=== PATIENT | female | born 1950 | race Caucasian/White ===

== ENCOUNTER 2020-01-04 08:26 | Outpatient (CLI) | payer MEDICARE, SELFPAY ==
--- NOTE | ~2020-01-04 | MM_ITS ---
EXAMINATION: MM scrn marcela implant BI w yola HISTORY: Screening mammogram, family history of breast cancer in her mother. TECHNIQUE: Craniocaudal and mediolateral oblique 3-D tomosynthesis images with implant displacement a nd synthetic 2-D images were generated. Craniocaudal and mediolateral oblique views of the breasts wi thout implant displacement were obtained using full field digital mammography. CAD analysis was submi tted and interpreted. COMPARISON: 08/11/2018, 10/08/2016, 09/17/2015 BREAST PARENCHYMAL COMPOSITION: There are scattered areas of fibroglandular density. FINDINGS: RIGHT BREAST: Asymmetries are present in the far posterior third of the upper breast on the mediolate ral oblique view without implant displacement. LEFT BREAST: There is no evidence of suspicious mass, calcification, or architectural distortion to s uggest malignancy. There has been no significant interval change. IMPRESSION: 1. Right breast asymmetries on the mediolateral oblique view without implant displacement. 2. Additional mammographic views and possible breast ultrasound are recommended. BI-RADS Category 0: Incomplete: Needs additional imaging evaluation. Reviewed, dictated and finalized at location A. 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 Right breast asymmetries on the mediolateral oblique view without implant di splacement. 2. Additional mammographic views and possible breast ultrasound are recommended . BI-RADS Category 0: Incomplete: Needs additional imaging evaluation.
== END 2020-01-04 08:27 | disposition home or self-care (01) ==
LOC: ANHIMG 08:37
DX: Z12.31 Encounter for screening mammogram for malignant neoplasm of breast (principal); R92.8 Other abnormal and inconclusive findings on diagnostic imaging of breast
CPT/HCPCS: 77063; 77067

== ENCOUNTER 2020-02-05 12:59 | Outpatient (CLI) | payer MEDICARE, SELFPAY ==
--- NOTE | ~2020-02-05 | MM_ITS ---
EXAMINATION: MM diagnostic mammo unilat RT HISTORY: Right breast asymmetries on screening mammogram TECHNIQUE: Additional images of the right breast were performed. CAD analysis was submitted and inter preted. COMPARISON: 01/04/2020, 08/11/2018,10/08/2016, 09/17/2015 FINDINGS: A single persistent asymmetry is seen in the posterior third of the upper breast on the med iolateral view without implant displacement. This has the appearance of extravasated silicone. No add itional persistent asymmetry is identified. IMPRESSION: 1. No mammographic evidence of malignancy. 2. Recommend routine screening mammography in one year. BI-RADS Category 2: Benign finding(s). Reviewed, dictated and finalized at location A. 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
== END 2020-02-05 13:00 | disposition home or self-care (01) ==
PROVIDERS: PCP Internal Medicine
DX: R92.2 Inconclusive mammogram (principal)
CPT/HCPCS: 77065

== ENCOUNTER 2020-04-23 07:59 | Outpatient (CLI) | payer MEDICARE, SELFPAY | END 2020-04-23 08:00 | LOC: ANHCOVIDVC 07:59 | PROVIDERS: PCP Internal Medicine; Visit Provider Internal Medicine | DX: Z23 Encounter for immunization (principal) | CPT/HCPCS: 0001A; 91300 ==

== ENCOUNTER 2020-05-14 07:57 | Outpatient (CLI) | payer MEDICARE, SELFPAY | END 2020-05-14 07:58 | disposition home or self-care (01) | LOC: ANHCOVIDVC 07:58 | PROVIDERS: PCP Internal Medicine | DX: Z23 Encounter for immunization (principal) | CPT/HCPCS: 0002A; 91300 ==

== ENCOUNTER 2020-08-16 08:26 | Outpatient (CLI) | payer MEDICARE, SELFPAY ==
--- NOTE | ~2020-08-16 | MR_ITS ---
EXAMINATION: MR brain IAC wo/w con DATE: 08/16/2020 09:49 INDICATION: Vertigo. TECHNIQUE: Magnetic resonance imaging (MRI) of the brain, brainstem, and internal auditory canals was performed without and with 12 mL MultiHance intravenous contrast. Sequences included sagittal and ax ial T1-weighted FSE, axial diffusion-weighted FS EPI, axial T2*-weighted GRE, axial T2-weighted FLAIR Propeller, axial T2-weighted Propeller, small wnejy-le-iyra coronal FIESTA, small dnldx-wa-fonj jabari nal T1-weighted FSE, and small qbtai-pp-raio axial T1-weighted SPGR. Postcontrast sequences included axial T1-weighted FSE, small qmspw-je-uoyk coronal T1-weighted FSE, and small fpdfm-vr-qnjl axial T1- weighted SPGR. Apparent diffusion coefficient (ADC) maps were created. COMPARISON: None. FINDINGS: There are scattered areas of nonspecific increased T2-weighted signal intensity in the cere bral white matter, which is within normal limits for the patient's age. There is no intracranial hemo rrhage, acute infarction, or abnormal intracranial mass lesion. The ventricles are normal in size. Th ere is mild mucosal thickening in the ethmoid sinuses. There are likely changes of ocular lens replac ement surgeries. The internal auditory canals and inner ears are normal. There is a small left mastoi d effusion. IMPRESSION: 1. Normal aging brain. Reviewed, dictated and finalized at location A. IMPRESSION: 1. Normal aging brain.
[2020-08-16 09:11] LABS: Estimated Glomerular Filt Rate 55
== END 2020-08-16 08:27 | disposition home or self-care (01) ==
PROVIDERS: PCP Internal Medicine
DX: H81.4 Vertigo of central origin (principal)
CPT/HCPCS: 70553; A9577

== ENCOUNTER → 2020-11-19 04:52 | Outpatient (CLI) | payer MEDICARE, SELFPAY ==
[2020-11-20 01:26] LABS: SARS-CoV-2 RNA PCR Negative
== END ==
PROVIDERS: PCP Internal Medicine; Visit Provider Internal Medicine
DX: R68.89 Other general symptoms and signs (principal); Z20.822 Contact with and (suspected) exposure to COVID-19
CPT/HCPCS: C9803; U0003; U0005

== ENCOUNTER → 2021-02-13 10:00 | Outpatient (CLI) | payer MEDICARE, SELFPAY ==
--- NOTE | ~2021-02-13 | DEXA_ITS ---
Bone Density Report Name: ALYSSA CISNEROS Age: 70 Sex: Female Ethnicity: White Date of : 1950 Indication: osteopenia; monitoring treatment; parental hip fracture; height loss; hysterectomy; postmenopausal Referring Provider: NICK WALTERS Study: Bone densitometry was performed. Exam Date: February 13, 2021 Accession number: [id number] Bone Density: Region BMD T-score Z-score Classification AP Spine (L1-L4) 0.852 -1.8 0.5 Osteopenia Femoral Neck (Left) 0.662 -1.7 0.2 Osteopenia Total Hip (Left) 0.707 -1.9 -0.3 Osteopenia Femoral Neck (Right) 0.649 -1.8 0.1 Osteopenia Total Hip (Right) 0.725 -1.8 -0.2 Osteopenia Total Hip Mean 0.716 -1.9 -0.3 Osteopenia World Health Organization criteria for BMD impression classify patients as: Normal (T-score at or above -1.0), Osteopenia (T-score between -1.0 and -2.5), or Osteoporosis (T-score at or below -2.5). 10-year Fracture Risk: FRAX not reported because: Treated for osteoporosis Previous Exams: Region Exam Age BMD T-score BMD Change BMD Change Date g/cm2 vs Baseline vs Previous AP Spine(L1-L4) 02/13/2021 70 0.852 -1.8 -0.103* -0.024* 08/11/2018 67 0.876 -1.6 -0.080* -0.051* 05/27/2012 61 0.926 -1.1 -0.029* -0.029* 02/01/2007 56 0.955 -0.8 Total Hip(Left) 02/13/2021 70 0.707 -1.9 -0.056* -0.027 08/11/2018 67 0.734 -1.7 -0.029* -0.019 05/27/2012 61 0.753 -1.5 -0.010 -0.010 02/01/2007 56 0.763 -1.5 Total Hip(Right) 02/13/2021 70 0.725 -1.8 -0.036* -0.004 08/11/2018 67 0.728 -1.8 -0.032* -0.008 05/27/2012 61 0.736 -1.7 -0.025 -0.025 02/01/2007 56 0.761 -1.5 *Denotes significance at 95% confidence level, LSC for AP Spine = 0.022 g/cm2, LSC for Total Hip = 0.027 g/cm2 Clinical Information Provided by Patient: Parent has had a hip fracture Is being treated for osteoporosis Has used the following medications: Vitamin D, Calcium, OSPHENA Has the following medical conditions: Hysterectomy Patient maximum height was 67.5 Menopause Age: 28 Drinks caffeinated beverages Onset of menses at age 11 Number of children 2 Impression: The patient has low bone mass, based on the Left Total Hip T-score. The patient has risk factors, including: parental hip fracture. The BMD for the AP Spine(L1-L4) decreased, ene
== END ==
PROVIDERS: PCP Internal Medicine
DX: Z78.0 Asymptomatic menopausal state (principal); M85.88 Other specified disorders of bone density and structure, other site; M85.852 Other specified disorders of bone density and structure, left thigh; M85.851 Other specified disorders of bone density and structure, right thigh
CPT/HCPCS: 77080

== ENCOUNTER 2021-02-19 07:33 | Outpatient (CLI) | payer MEDICARE, SELFPAY ==
--- NOTE | ~2021-02-19 | US_ITS ---
EXAMINATION: US abdomen limited EXAM DATE: 02/19/2021 07:56 INDICATION: R10.9 - Unspecified abdominal pain TECHNIQUE: Multiple grayscale and Doppler images of the abdomen right upper quadrant were obtained (b y a technologist who performed the scan) and subsequently reviewed. There are no prior studies for co mparison. FINDINGS: The pancreatic head and body are normal in appearance. The pancreatic tail is not visualized. The l iver has normal echogenicity and contour. There are no focal liver lesions identified. There is no evidence of intrahepatic biliary duct dilation. Portal venous flow was seen in the hepatopedal, nor mal direction and has normal Doppler waveform. No right-sided hydronephrosis. Incidental right renal cyst measuring 3.7 cm. Common bile duct measures 2 mm, which is normal. The gallbladder wall is normal in thickness, with ex pected amount of distention. No sonographic evidence of pericholecystic fluid. There is no cholelit hiases. Technologist performing exam reports patient did not demonstrate sonographic Paulino's sign. Please note that this sign is less reliable in patients who have received pain medication. IMPRESSION: Unremarkable abdominal ultrasound exam. Reviewed, dictated and finalized at location A. 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
== END 2021-02-19 07:34 | disposition home or self-care (01) ==
LOC: ANHIMG 07:33
PROVIDERS: PCP Internal Medicine; Visit Provider Internal Medicine
DX: R10.9 Unspecified abdominal pain (principal)
CPT/HCPCS: 76705

== ENCOUNTER 2021-04-28 08:32 | Outpatient (CLI) | payer MEDICARE, SELFPAY ==
--- NOTE | ~2021-04-28 | MM_ITS ---
EXAMINATION: MM scrn marcela implant BI w yola HISTORY: Screening mammogram TECHNIQUE: Craniocaudal and mediolateral oblique 3-D tomosynthesis images with implant displacement a nd synthetic 2-D images were generated. Craniocaudal and mediolateral oblique views of the breasts wi thout implant displacement were obtained using full field digital mammography. CAD analysis was submi tted and interpreted. COMPARISON: Comparison to multiple prior studies sequentially, with oldest reviewed study dated 09/06. BREAST PARENCHYMAL COMPOSITION: There are scattered areas of fibroglandular density. FINDINGS: There is no evidence of suspicious mass, calcification, or architectural distortion to sugg est malignancy in either breast. There has been no suspicious interval change. IMPRESSION: 1. No mammographic evidence of malignancy. 2. Recommend routine screening mammography in one year. BI-RADS Category 1: Negative Reviewed, dictated and finalized at location A. MS SORTER
== END 2021-04-28 08:33 | disposition home or self-care (01) ==
LOC: ANHIMG 08:38
PROVIDERS: PCP Internal Medicine; Visit Provider Obstetrics & Gynecology
DX: Z12.31 Encounter for screening mammogram for malignant neoplasm of breast (principal)
CPT/HCPCS: 77063; 77067

== ENCOUNTER 2021-10-21 08:06 | Outpatient (CLI) | payer MEDICARE, SELFPAY ==
--- NOTE | ~2021-10-21 | NM_ITS ---
EXAMINATION: NM hepatobiliary wo pharm DATE: 10/21/2021 11:06 INDICATION: Abdominal pain, nausea and loss of appetite COMPARISON: None. TECHNIQUE: 5.0 mCi Tc-99m mebrofenin (Choletec) was administered intravenously. Scintigraphic images of the abdomen were obtained for one hour. At the 1 hour time point, the patient drank 8 oz Ensure, and imaging was continued for 60 minutes. Gallbladder ejection fraction was calculated by the technol ogist. FINDINGS: There is normal clearance of radiotracer from the blood pool. There is homogeneous tracer u ptake by the liver. Activity progresses to the bowel and gallbladder. The gallbladder ejection fract ion (GBEF) is 71%. Note that with this technique, normal GBEF >= 33%. IMPRESSION: 1. Normal hepatobiliary scan Reviewed, dictated and finalized at location A.
== END 2021-10-21 08:07 | disposition home or self-care (01) ==
PROVIDERS: PCP Internal Medicine; Visit Provider Nurse Practitioner
DX: R10.13 Epigastric pain (principal); R11.0 Nausea; R63.0 Anorexia
CPT/HCPCS: 78226; A9537

== ENCOUNTER 2021-10-28 12:02 | Day surgery (SDC) | payer MEDICARE, SELFPAY ==
[2021-10-17 10:43] VITALS: BMI 22.4
[2021-10-20 09:35] VITALS: BMI 21.9
[2021-10-28] MEDS: LACTATED RINGERS 1,000 ML 150 ML IV CONT (12:30)
[2021-10-28 12:37] VITALS: BMI 22.0
[2021-10-28 12:40] VITALS: BP 139/68; PULSE 95; RESP 16; TEMP 37.2; O2SAT 100
--- NOTE | 2021-10-28 12:46 | WPDANESEPPF ---
Anes - Initial Pre Proc Eval Procedure: Operation Date: 10/28/21 13:30 Proposed Procedures p Esophagogastroduodenoscopy - Richy Zaman MD Date/Time: 10/28/21 12:46 Surgeon: Richy Zaman MD Pre Op Diagnosis: Epigastric Pain and Nausea Patient Data Age: 70 Gender: F Height: 1.7 m Weight: 63.9 kg Allergies Allergy/AdvReac Type Severity Reaction Status Date / Time esomeprazole [From Nexium] Allergy Mild Abdominal Verified 10/28/21 12:34 Pain pregabalin [From Lyrica] Allergy Mild Hyperactive Verified 10/28/21 12:34 Home Medications Medication Instructions Recorded Confirmed Type biotin 5,000 mcg disintegrating 10,000 mcg PO DAILY 02/08/20 10/28/21 History tablet ospemifene 60 mg tablet (Osphena) 60 mg PO DAILY 02/08/20 10/28/21 History fesoterodine 8 mg tablet,extended 8 mg PO DAILY #90 tabs 02/07/21 10/28/21 Rx release 24 hr (Toviaz) cqordxov-hzs-rxkjq ac 400 1 tablet PO DAILY 02/07/21 10/28/21 History mcg-calcium carb 500 mg-vit K1 20 mcg tablet (Women's 50 Plus Multivitamin) famotidine 40 mg tablet 40 mg PO DAILY #30 tabs 10/16/21 10/28/21 Rx ondansetron 4 mg disintegrating 4 mg PO Q8H PRN nausea and 10/16/21 10/28/21 Rx tablet vomiting #20 tabs Patient hx anesthesia problems: none Family hx anesthesia problems: none Results Review: All pre-operative results and documents have been reviewed as part of the pre-operative evaluation. [facility] Past Medical History Medical History Colon cancer screening Family history of breast cancer Fatigue Idiopathic peripheral neuropathy Nausea OAB (overactive bladder) Weight loss Wellness examination Surgical History Surgical History (Updated 10/28/21 @ 12:47 by Faizan Mejia MD) H/O: hysterectomy History of appendectomy Family History Family History Sibling Diabetes mellitus Hypertension Mother Hypertension Family history of malignant neoplasm of breast in first degree relative Father Family history of malignant neoplasm Social History Social History Smoking packs per day: 0.5 Smoking cigarettes per day: 10.0 Years smoked: 1 Smoking pack-years: 0.50 Smoking status: Former smoker Smoking end date: 02/22/70 Alcohol intake: current Alcohol use details: social Substance use: never Substance use type: does not use Living arrangements: with family Spiritual care concerns: No Anes - Eval Final PreProcedure Day of Procedure 10/28/21 12:46 Patient weight: normal Heart: regular rate and rhythm Lungs: clear to auscultation Airway: Mallampati scale class II Neurological: alert and oriented Last oral intake: >/= 8 hours ASA classification: II Emergent: no Anesthetic plan: proceed Anesthesia type and monitoring: general GIVS and standard monitoring Results Review: All pre-operative results and documents have been reviewed as part of the pre-operative evaluation. Informed Consent: The patient's anesthetic plan and its attendant risks and benefits were discussed with the patient/family/POA. Questions were solicited and answers provided to the satisfaction of the patient/family/POA.
--- NOTE | 2021-10-28 12:50 | WPDHPUPDATE1 ---
History and Physical Update Update Date/Time: 10/28/21 12:50 History and Physical has been reviewed, including an updated exam of the patient. There are NO changes in the patient's condition. Risks, benefits, and alternatives have been discussed and questions answered. Patient agrees to proceed with procedure.
[2021-10-28 13:49] VITALS: BP 113/52; PULSE 82; RESP 16; O2SAT 100
[2021-10-28 13:59] VITALS: BP 118/53; PULSE 84; RESP 16; O2SAT 100
--- NOTE | 2021-10-28 14:01 | SUR.PHASEII ---
PT AWAKE AND ALERT. DRINKING WATER WITHOUT DIFFICULTY. DENIES PAIN. STATES MILD SORE THROAT/ TOLERABLE.
--- NOTE | 2021-10-28 14:03 | WPDANESPN ---
Anes - Prog Note Post-Op Date/Time: 10/28/21 14:03 Cardiovascular status: normal Respiratory status: normal Airway patency: baseline Mental status: baseline Post-Op hydration status: normal Vital Signs: Last Vital Signs Temp 37.2 C 10/28/21 12:40 Pulse 82 10/28/21 13:49 Resp 16 10/28/21 13:49 BP 113/52 L 10/28/21 13:49 Pulse Ox 100 10/28/21 13:49 O2 Del Method Room Air 10/28/21 13:49 Pain Score (VAS): 0/10 I/O: Intake & Output 10/27/21 10/28/21 10/28/21 23:59 07:59 15:59 Intake Total 0 Balance 0 Patient Feedback: Patient satisfied with anesthetic care.
[2021-10-28 14:10] VITALS: BP 120/73; PULSE 77; RESP 16
== END 2021-10-28 14:23 | disposition home or self-care (01) ==
PROVIDERS: PCP Internal Medicine; Visit Provider Internal Medicine Gastroenterology
PROC: 0DJ08ZZ Inspection of Upper Intestinal Tract, Via Natural or Artificial Opening Endoscopic (ICD-10-PCS; CPT 43235; principal; 2021-10-28 13:30)
DX: R11.0 Nausea (principal)
CPT/HCPCS: 43239

== ENCOUNTER 2021-10-28 13:00 | Outpatient (NON) | payer MEDICARE, SELFPAY | END 2021-10-28 13:01 | disposition home or self-care (01) | LOC: ANHLAB 10-29 08:49 | PROVIDERS: PCP Internal Medicine; Visit Provider Internal Medicine Gastroenterology | DX: R11.0 Nausea (principal) | CPT/HCPCS: 88305 ==

== ENCOUNTER 2021-11-07 07:54 | Outpatient (CLI) | payer MEDICARE, SELFPAY ==
--- NOTE | ~2021-11-07 | CT_ITS ---
EXAMINATION: CT abdomen pelvis w con INDICATION: Abdominal pain TECHNIQUE: Computed tomographic images of the abdomen and pelvis were obtained after the administrati on of 100 cc of Omnipaque 350 intravenous contrast. The dose-length product (DLP) was 312.02 mGy-cm. Automated exposure control and iterative reconstruction technique were employed. COMPARISON: 08/26/2004 FINDINGS: Minimal dependent atelectasis is present in the lung bases. The heart size is normal. The l iver, spleen, pancreas, gallbladder, and adrenal glands are normal. The left kidney is unremarkable. There is a 4.2 cm cyst of the right kidney No pathologically enlarged abdominal or pelvic lymph nodes are identified. There is no free intraperitoneal gas or evidence of bowel obstruction. There is a la rge volume of colonic stool. There is mild lumbar spondylosis. IMPRESSION: 1. Constipation. Reviewed, dictated and finalized at location B. IMPRESSION: 1. Constipation.
[2021-11-07 08:35] LABS: Estimated Glomerular Filt Rate > 60
== END 2021-11-07 07:55 | disposition home or self-care (01) ==
PROVIDERS: PCP Internal Medicine; Visit Provider Nurse Practitioner Family
DX: R10.11 Right upper quadrant pain (principal); K59.00 Constipation, unspecified
CPT/HCPCS: 74177; Q9967

== ENCOUNTER 2022-10-22 08:55 | Outpatient (CLI) | payer MEDICARE, SELFPAY ==
--- NOTE | ~2022-10-22 | XR_ITS ---
Clinical Indication: Dyspnea PA and lateral views of the chest: Comparison: None Findings: The lungs are clear, without evidence of focal consolidation or pleural effusion. Cardiome diastinal silhouette is within normal limits. Bones osseous structures intact. Bilateral breast impla nts present. Impression: Clear lungs. Reviewed, dictated and finalized at location . Impression: Clear lungs.
--- NOTE | 2022-10-22 09:05 | ECG_ITS ---
Measurements Intervals [place] Rate: 85 P: 86 MT: 173 QRS: 56 QRSD: 79 T: 101 QT: 352 QTc: 420 Interpretive Statements SINUS RHYTHM NORMAL ECG NO PREVIOUS ECG AVAILABLE FOR COMPARISON Electronically Signed On 10-22-2022 9:45:43 CDT by Armani Moe M.D.
== END 2022-10-22 08:56 | disposition home or self-care (01) ==
PROVIDERS: Visit Provider Internal Medicine
DX: R06.00 Dyspnea, unspecified (principal); M81.0 Age-related osteoporosis without current pathological fracture
CPT/HCPCS: 71046; 93005

== ENCOUNTER 2022-11-16 09:53 | Outpatient (CLI) | payer MEDICARE, SELFPAY ==
--- NOTE | ~2022-11-16 | MM_ITS ---
EXAMINATION: MM scrn marcela implant BI w yola HISTORY: Screening mammogram TECHNIQUE: Craniocaudal and mediolateral oblique 3-D tomosynthesis images with implant displacement a nd synthetic 2-D images were generated. Craniocaudal and mediolateral oblique views of the breasts wi thout implant displacement were obtained using full field digital mammography. CAD analysis was submi tted and interpreted. COMPARISON: 04/28/2021 bilateral implant screening mammogram 02/05/2020 diagnostic right mammogram 01/04/2020, 08/11/2018 bilateral implant screening mammogram examinations BREAST PARENCHYMAL COMPOSITION: There are scattered areas of fibroglandular density. FINDINGS: Status post bilateral augmentation mammoplasty. There is no evidence of suspicious mass, ca lcification, or architectural distortion to suggest malignancy in either breast. There has been no reza spicious interval change. IMPRESSION: 1. No mammographic evidence of malignancy. 2. Recommend routine screening mammography in one year. BI-RADS Category 1: Negative Reviewed, dictated and finalized at location A.
== END 2022-11-16 09:54 | disposition home or self-care (01) ==
LOC: ANHIMG 10:00
PROVIDERS: PCP Internal Medicine; Visit Provider Obstetrics & Gynecology
DX: Z12.31 Encounter for screening mammogram for malignant neoplasm of breast (principal)
CPT/HCPCS: 77063; 77067

== ENCOUNTER 2022-11-26 03:10 | Day surgery (SDC) | payer MEDICARE, SELFPAY ==
[2022-11-18 08:15] VITALS: BMI 24.9
[2022-11-26 07:03] VITALS: BP 124/51; PULSE 89; RESP 16; TEMP 36.1; O2SAT 100
[2022-11-26] MEDS: LACTATED RINGERS 1,000 ML 150 ML IV CONT (07:05)
--- NOTE | 2022-11-26 08:26 | WPDANESEPPF ---
Anes - Initial Pre Proc Eval Procedure: Operation Date: 11/26/22 08:30 Proposed Procedures p Colonoscopy - Junior Rob DO Date/Time: 11/26/22 08:26 Surgeon: Junior Rob DO Pre Op Diagnosis: positive cologuard Patient Data Age: 72 Gender: F Height: 1.65 m Weight: 67.5 kg Last Vital Signs Temp 97 F L 11/26/22 07:03 Pulse 89 11/26/22 07:03 Resp 16 11/26/22 07:03 BP 124/51 L 11/26/22 07:03 Pulse Ox 100 11/26/22 07:03 O2 Del Method Room Air 11/26/22 07:03 Allergies Allergy/AdvReac Type Severity Reaction Status Date / Time esomeprazole [From Nexium] Allergy Mild Abdominal Verified 11/26/22 07:02 Pain pregabalin [From Lyrica] Allergy Mild Hyperactive Verified 11/26/22 07:02 duloxetine [From Cymbalta] AdvReac Nausea and Verified 11/26/22 07:02 Vomiting gabapentin [From Neurontin] AdvReac Nausea and Verified 11/26/22 07:02 Vomiting Home Medications Medication Instructions Recorded Confirmed Type biotin 5,000 mcg disintegrating 10,000 mcg PO DAILY 02/08/20 11/26/22 History tablet ospemifene 60 mg tablet (Osphena) 60 mg PO DAILY 02/08/20 11/26/22 History pqgmkklm-fsx-vmkwp ac 400 1 tablet PO DAILY 02/07/21 11/26/22 History mcg-calcium carb 500 mg-vit K1 20 mcg tablet (Women's 50 Plus Multivitamin) vibegron 75 mg tablet (Gemtesa) 75 mg PO DAILY 11/18/22 11/26/22 History Patient hx anesthesia problems: post op nausea/vomiting Family hx anesthesia problems: none Results Review: All pre-operative results and documents have been reviewed as part of the pre-operative evaluation. [facility] Past Medical History Medical History (Updated 05/06/22 @ 15:38 by Chance Tipton, ) Colon cancer screening Depressed Family history of breast cancer Fatigue Idiopathic peripheral neuropathy Nausea OAB (overactive bladder) Weight loss Wellness examination Surgical History Surgical History H/O: hysterectomy History of appendectomy Family History Family History Sibling Diabetes mellitus Hypertension Mother Hypertension Family history of malignant neoplasm of breast in first degree relative Father Family history of malignant neoplasm Social History Social History Smoking packs per day: 0.5 Smoking cigarettes per day: 10.0 Years smoked: 1 Smoking pack-years: 0.50 Smoking status: Never smoker Smoking end date: 02/22/70 Alcohol intake: current Alcohol use details: occasionally Substance use: never Substance use type: does not use Lack of Food: Never True Current Housing: I Have Housing Concerned About Future Housing: No Difficulty Paying Gas/Electric Bills: No Difficulty Paying for Meds: No Currently Unemployed: No Education: Master's Degree or Higher Difficulty w/ Childcare or Family Care: No Living arrangements: with family Spiritual care concerns: No Anes - Eval Final PreProcedure Day of Procedure 11/26/22 08:26 Patient weight: normal Heart: regular rate and rhythm Lungs: clear to auscultation Airway: Mallampati scale class II Neurological: alert and oriented Last oral intake: >/= 8 hours ASA classification: II Emergent: no Anesthetic plan: proceed Anesthesia type and monitoring: general GIVS and standard monitoring Results Review: All pre-operative results and documents have been reviewed as part of the pre-operative evaluation. Informed Consent: The patient's anesthetic plan and its attendant risks and benefits were discussed with the patient/family/POA. Questions were solicited and answers provided to the satisfaction of the patient/family/POA.
--- NOTE | 2022-11-26 08:28 | PM.IMHP ---
H&P: HPI History of Present Illness Date/Time: 11/26/22 08:28 Chief Complaint: Positive Cologuard Narrative: This is a 72-year-old woman who presents for colonoscopy for a positive Cologuard test. She has had colonoscopies before. Her last colonoscopy was many years ago. She denies any family history of colon cancer and she denies any hematochezia or melena. Review of Systems Review of Systems: All systems reviewed & are unremarkable except as noted in HPI and below Constitutional: Constitutional: Denies chills, Denies fever(s), Denies headache(s) and Denies weight loss Eyes: Eyes: Denies change in vision ENT: Denies dizziness, Denies headache(s), Denies neck mass and Denies throat swelling Cardiovascular: Cardiovascular: Denies chest pain, Denies lightheadedness and Denies dyspnea Respiratory: Respiratory: Denies cough, Denies dyspnea and Denies wheezing Gastrointestinal: Gastrointestinal: Denies abdominal pain, Denies change in bowel habits, Denies nausea and Denies vomiting Genitourinary: Genitourinary: Denies hematuria and Denies dysuria Musculoskeletal: Musculoskeletal: Reports as per HPI Integumentary/Breasts: Skin/Breast: Reports as per HPI Neurologic: Denies dizziness and Denies headache(s) Allergic/Immunologic: Allergic/Immunologic: Denies throat swelling and Denies wheezing [facility] Past Medical History Medical History (Updated 11/26/22 @ 08:29 by Junior Rob DO) Colon cancer screening Depressed Family history of breast cancer Fatigue Idiopathic peripheral neuropathy Nausea OAB (overactive bladder) Weight loss Wellness examination Surgical History Surgical History H/O: hysterectomy History of appendectomy Family History Family History Sibling Diabetes mellitus Hypertension Mother Hypertension Family history of malignant neoplasm of breast in first degree relative Father Family history of malignant neoplasm Social History Social History Smoking packs per day: 0.5 Smoking cigarettes per day: 10.0 Years smoked: 1 Smoking pack-years: 0.50 Smoking status: Never smoker Smoking end date: 02/22/70 Alcohol intake: current Alcohol use details: occasionally Substance use: never Substance use type: does not use Lack of Food: Never True Current Housing: I Have Housing Concerned About Future Housing: No Difficulty Paying Gas/Electric Bills: No Difficulty Paying for Meds: No Currently Unemployed: No Education: Master's Degree or Higher Difficulty w/ Childcare or Family Care: No Living arrangements: with family Spiritual care concerns: No Meds Home Medications and Allergies Home Medications Medication Instructions Recorded Confirmed Type biotin 5,000 mcg disintegrating 10,000 mcg PO DAILY 02/08/20 11/26/22 History tablet ospemifene 60 mg tablet (Osphena) 60 mg PO DAILY 02/08/20 11/26/22 History mnviofcl-ztb-ludkd ac 400 1 tablet PO DAILY 02/07/21 11/26/22 History mcg-calcium carb 500 mg-vit K1 20 mcg tablet (Women's 50 Plus Multivitamin) vibegron 75 mg tablet (Gemtesa) 75 mg PO DAILY 11/18/22 11/26/22 History Allergies Allergy/AdvReac Type Severity Reaction Status Date / Time esomeprazole [From Nexium] Allergy Mild Abdominal Verified 11/26/22 07:02 Pain pregabalin [From Lyrica] Allergy Mild Hyperactive Verified 11/26/22 07:02 duloxetine [From Cymbalta] AdvReac Nausea and Verified 11/26/22 07:02 Vomiting gabapentin [From Neurontin] AdvReac Nausea and Verified 11/26/22 07:02 Vomiting Vital Signs Vital Signs - 24 hr 11/26/22 07:03 Temperature 36.1 C L Pulse Rate 89 Respiratory Rate 16 Blood Pressure 124/51 L Pulse Oximetry 100 Oxygen Delivery Room Air Exam Const: General: no acute distress and alert Orie
[2022-11-26 09:02] VITALS: BP 112/56; PULSE 78; RESP 26; O2SAT 100
[2022-11-26 09:12] VITALS: BP 127/61; PULSE 73; RESP 20; O2SAT 100
[2022-11-26 09:22] VITALS: BP 138/63; PULSE 71; RESP 21; O2SAT 100
== END 2022-11-26 09:32 | disposition home or self-care (01) ==
PROVIDERS: PCP Internal Medicine; Visit Provider Surgery
PROC: 0DJD8ZZ Inspection of Lower Intestinal Tract, Via Natural or Artificial Opening Endoscopic (ICD-10-PCS; CPT 45378; principal; 2022-11-26 08:30)
DX: R19.5 Other fecal abnormalities (principal); Z87.891 Personal history of nicotine dependence
CPT/HCPCS: 45378; J2704; J7120

== ENCOUNTER → 2023-01-29 10:29 | Outpatient (CLI) | payer MEDICARE, SELFPAY ==
--- NOTE | ~2023-01-29 | MR_ITS ---
MRI of the left knee Clinical history: ACL tear, medial meniscus tear Technique: Coronal proton density and proton density-weighted images, sagittal proton-density and T2 fat-sat images, and axial proton-density fat-saturated images were acquired. Findings: Anterior and posterior cruciate ligaments are intact. Medial collateral ligament and the la teral collateral ligament complex are intact. Popliteus tendon is intact. Medial and lateral menisci are intact, without evidence of tear. There is high-grade chondromalacia the lateral joint line with lateral joint line osteophyte formatio n and subchondral cystic change at the lateral corner of the lateral femoral condyle. Articular carti maine in the medial compartment is well preserved. 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 There is diffuse moderate to high-grade ch ondromalacia of the femoral trochlea. Extensor mechanism is intact. No significant joint effusion or Velasco's cyst. Impression: No ligamentous injury or meniscal tear seen. Degenerative change, worst at the patellofemoral compartment and lateral joint line, as detailed estefany [place]. Reviewed, dictated and finalized at location . COMMUNICATIONS FACILITY EXAMINER Impression: No ligamentous injury or meniscal tear seen. Degenerative change, worst at the patellofemoral compartment and lateral joint line, as detailed above.
--- NOTE | ~2023-01-29 | CT_ITS ---
EXAMINATION: CT sinus wo con DATE: 01/29/2023 12:52 INDICATION: Chronic sinusitis TECHNIQUE: Computed tomography (CT) of the paranasal sinuses was performed without intravenous contra st. The dose-length product was 401.69 mGy-cm. Automated exposure control and iterative reconstructio n technique were employed. COMPARISON: None FINDINGS: There is mild mucosal thickening of the ethmoid sinuses. No air-fluid levels. No mucoperios teal reaction. No significant nasal septal deviation. Small left mastoid effusion. IMPRESSION: 1. Mild sinus disease. Reviewed, dictated and finalized at location B. ALLATIONS INSPECTOR IMPRESSION: 1. Mild sinus disease.
== END ==
PROVIDERS: PCP Internal Medicine; Visit Provider Internal Medicine
DX: J32.9 Chronic sinusitis, unspecified (principal); M17.12 Unilateral primary osteoarthritis, left knee
CPT/HCPCS: 70486; 73721

== ENCOUNTER 2023-05-21 08:44 | Outpatient (CLI) | payer MEDICARE, SELFPAY ==
--- NOTE | ~2023-05-21 | DEXA_ITS ---
Bone Density Report Name: ALYSSA CISNEROS Age: 72 Sex: Female Ethnicity: White Date of : 1950 Indication: postmenopausal; screening for osteoporosis; parental hip fracture; height loss; cancer; hysterectomy; Referring Provider: SARA YI Study: Bone densitometry was performed. Exam Date: May 21, 2023 Accession number: [id number] Bone Density: Region BMD T-score Z-score Classification AP Spine(L1-L4) 0.902 -1.3 1.0 Osteopenia Femoral Neck (Left) 0.662 -1.7 0.4 Osteopenia Total Hip (Left) 0.719 -1.8 -0.1 Osteopenia Femoral Neck (Right) 0.642 -1.9 0.2 Osteopenia Total Hip (Right) 0.773 -1.4 0.4 Osteopenia Total Hip Mean 0.746 -1.6 0.2 Osteopenia World Health Organization criteria for BMD impression classify patients as: Normal (T-score at or above -1.0), Osteopenia (T-score between -1.0 and -2.5), or Osteoporosis (T-score at or below -2.5). 10-year Fracture Risk: FRAX not reported because: Treated for osteoporosis Clinical Information Provided by Patient: Parent has had a hip fracture Is being treated for osteoporosis Has used the following medications: Vitamin D Has the following medical conditions: Cancer, Hysterectomy Patient maximum height was 67.5 Drinks caffeinated beverages Onset of menses at age 11 Number of children 2 Impression: The patient has low bone mass, based on the Right Femoral Neck T-score. The patient has risk factors, including: parental hip fracture. Discussion: It is important to ask patients whether they are taking their medications and to encourage continued and appropriate compliance with their osteoporosis therapies to reduce fracture risk. It is also important to review their risk factors and encourage appropriate calcium and vitamin D intakes, exercise, fall prevention and other lifestyle measures. Follow-Up: Consider a repeat BMD and Vertebral Fracture Assessment (VFA) exam in 2 years or sooner if medically necessary, to reassess this patient's status. Reported by: TEOFILO on 05/21/2023 9:37:00 AM. Reviewed, dictated and finalized at location A. LORENZA
== END 2023-05-21 08:45 | disposition home or self-care (01) ==
LOC: ANHIMG 08:49
PROVIDERS: PCP Internal Medicine; Visit Provider Internal Medicine
DX: R06.09 Other forms of dyspnea (principal); Z78.0 Asymptomatic menopausal state; M85.88 Other specified disorders of bone density and structure, other site; M85.852 Other specified disorders of bone density and structure, left thigh; M85.851 Other specified disorders of bone density and structure, right thigh
CPT/HCPCS: 77080

== ENCOUNTER 2023-06-02 10:34 | Outpatient (CLI) | payer MEDICARE, SELFPAY ==
--- NOTE | ~2023-06-02 | XR_ITS ---
Clinical Indication: Cough PA and lateral views of the chest: Comparison: 10/22/2022 Findings: The lungs are clear, without evidence of focal consolidation or pleural effusion. Cardiome diastinal silhouette is within normal limits. Bones and soft tissues are unremarkable. Impression: Normal chest. Reviewed, dictated and finalized at location . Impression: Normal chest.
[2023-06-02 11:06] LABS: Basophils Absolute Auto 0.02 K/mm3 (0.00-0.10); Basophils Percent Auto 0.5 % (0.0-1.0); Eosinophils Absolute Auto 0.26 K/mm3 (0.02-0.50); Eosinophils Percent Auto 6.2 % (1.0-6.0); Hematocrit 39.7 % (35.0-42.0); Hemoglobin 12.7 g/dL (11.7-13.8); Immature Granulocyte Absolute 0.01 K/mm3 (0.00-0.00); Immature Granulocyte Percent A 0.2 % (0.0-0.0); Lymphocytes Absolute Auto 0.85 K/mm3 (1.10-4.50); Lymphocytes Percent Auto 20.4 % (18.0-42.0); Mean Platelet Volume 11.1 fl (9.2-11.8); Monocytes Absolute Auto 0.57 K/mm3 (0.10-0.90); Monocytes Percent Auto 13.7 % (2.0-11.0); Neutrophils Absolute Auto 2.46 K/mm3 (1.70-7.20); Platelet Count Result 197 K/mm3 (150-420); Red Blood Count 3.97 M/mm3 (4.20-5.40); Red Cell Distribution Width 12.9 % (11.6-14.4); White Blood Count 4.2 K/mm3 (4.8-10.8)
[2023-06-02 12:02] LABS: RSV RNA, RT-PCR Negative (Negative)
== END 2023-06-02 10:35 | disposition home or self-care (01) ==
PROVIDERS: PCP Internal Medicine; Visit Provider Internal Medicine
DX: R05.9 Cough, unspecified (principal)
CPT/HCPCS: 36415; 71046; 85025; 87634

== ENCOUNTER 2023-06-15 08:04 | Outpatient (CLI) | payer MEDICARE, SELFPAY ==
--- NOTE | ~2023-06-15 | XR_ITS ---
EXAMINATION: XR chest 2V 06/15/2023 08:37 INDICATION: Loss of voice for 10 days PROCEDURE: 2 view chest COMPARISON: 06/02/2023 FINDINGS: The lungs are clear. The cardiomediastinal silhouette is within normal limits. There are no pleural effusions. There is no pneumothorax suspected. There are calcified bilateral breast impl ants. The lungs are hyperinflated which is consistent with, but not diagnostic of chronic obstructive pulmonary disease. IMPRESSION: 1: NO ACUTE CARDIOPULMONARY DISEASE. Reviewed, dictated and finalized at location B.
[2023-06-15 08:32] LABS: Hematocrit 40.3 % (35.0-42.0); Hemoglobin 12.8 g/dL (11.7-13.8); Mean Corpuscular HGB Conc 31.8 g/dL (32-36); Mean Corpuscular Hemoglobin 31.8 pg (27.0-31.0); Mean Corpuscular Volume 100.2 fL (78.0-102.0); Platelet Count Result 237 K/mm3 (150-420); Red Blood Count 4.02 M/mm3 (4.20-5.40); Red Cell Distribution Width 12.9 % (11.6-14.4); White Blood Count 5.2 K/mm3 (4.8-10.8)
[2023-06-15 16:08] LABS: Basophils Absolute Auto 0.05 K/mm3 (0.00-0.10); Eosinophils Percent Auto 3.9 % (1.0-6.0); Immature Granulocyte Absolute 0.02 K/mm3 (0.00-0.00); Immature Granulocyte Percent A 0.4 % (0.0-0.0); Lymphocytes Percent Auto 23.4 % (18.0-42.0); Monocytes Absolute Auto 0.51 K/mm3 (0.10-0.90); Neutrophils Absolute Auto 3.14 K/mm3 (1.70-7.20); Neutrophils Percent Auto 61.3 % (50.0-70.0)
== END 2023-06-15 08:05 | disposition home or self-care (01) ==
LOC: CHSLAB 08:06
PROVIDERS: PCP Internal Medicine; Visit Provider Internal Medicine
DX: R05.9 Cough, unspecified (principal)
CPT/HCPCS: 36415; 71046; 85025; 85027

== ENCOUNTER 2024-11-01 11:08 | Outpatient (CLI) | payer MEDICARE, SELFPAY ==
--- NOTE | ~2024-11-01 | XR_ITS ---
EXAMINATION: XR wrist LT min 3V, 11/01/2024 11:17 CDT HISTORY: LEFT WRIST PAIN/INJURY COMPARISON: No comparisons available. Findings: No acute fracture or malalignment. No significant degenerative changes. Soft tissues unremarkable. Impression: No acute fracture or malalignment. Reviewed, dictated and finalized at location A. Impression: No acute fracture or malalignment.
--- OUTSIDE RECORDS SUMMARY | 2024-11-01 12:06 | XMS_ITS | Patient Health Record ---
Author Organization [facility] Address [address] [place] [address] Care Team Providers Care Geologic Technician Name Role Phone UNKNOWN, UNKNOWN Primary Care Provider Unavailab Ann Berman Unavailable [phone] Allergies Allergen (clinical drug ingredient) Drug/Non Drug Allergy documented on EMR Reaction Allergy Type Onset Date Status calcium carbonate Calcium Unknown Drug Allergy Active Anesthetic Maximum Strength Unknown Drug Allergy Active Reason For Referral No Information Medications Medication SIG (Take, Route, Fr equency, Duration) Notes Start Date End Date Status Osphena Active Toviaz Not-Taking Plan Of Treatment No Information Insurance Providers Payer Name Payer Address Payer Phone Subscriber Number Group Number Insured Name Patient Relationship to Insured Coverage Start Date Coverage End Date [employer]ARE [address] [place] [address] [id number] Sherri Hansen Self - patient is the insured Medical (General) History Medical History History ICD Code skin cancer, gerd, tingling in the feet, pneumonia Surgical History Surgery Date(Month/Year)
--- OUTSIDE RECORDS SUMMARY | 2024-11-01 12:06 | XMS_ITS | Patient Health Record ---
Author Organization [facility] Address [address] [place], [place] [id number] Care Team Providers Care Travel Sales Consultant Name Role Phone JOE Brooks Unavailable Sanjana Balbuena Unavailable Unavailable Reason For Referral No Information Plan Of Treatment No Information Insurance Providers Payer Name Payer Address Payer Phone Subscriber Number Group Number Insured Name Patient Relationship to Insured Coverage Start Date Coverage End Date [facility] [address] [address] [place] [address] [id number] ALYSSA CISNEROS Self - patient is the insured
== END 2024-11-01 11:09 | disposition home or self-care (01) ==
LOC: CHSIMG 11:10
PROVIDERS: PCP Internal Medicine; Visit Provider Internal Medicine
DX: M25.532 Pain in left wrist (principal)
CPT/HCPCS: 73110